=== PATIENT | female | born 1970 | race African-American/Black ===

== ENCOUNTER 2016-05-30 16:54 | Emergency (ER) | payer OTHER ==
--- NOTE | 2016-05-30 20:25 | ED ---
Psych HPI - General Chief Complaint: Psychiatric Symptoms Stated Complaint: Mental Health Time Seen by Provider: 05/30/16 17:10 Source: patient, RN notes reviewed Mode of arrival: ambulatory - History of Present Illness Initial Comments: This patient is a 46-year-old woman who presents to be evaluated after she has had a number of recent stressors in her life. The patient states that she is having significant anxiety and also depressed mood. She states that she needs to get some help soon were she is afraid she is going get much worse. She states that she has history of previous substance abuse and is afraid that she' ll return to that if things don't improve. The patient is currently denying suicidal ideation or homicidal ideation. She is not having hallucinations. MD Complaint: feels depressed Associated Psychiatric Symptoms: depression History of same: No Quality: intermittent Improves With: none Context: significant life stressor Associated Symptoms: denies other symptoms - Related Data Home Medications Medication Instructions Recorded Confirmed Mirtazapine [Remeron] 30 mg PO HS 02/01/14 05/30/16 diphenhydrAMINE HCL [Benadryl] 25 mg PO HS PRN 03/23/14 05/30/16 Ibuprofen [Motrin] 800 mg PO Q8HR PRN 05/30/16 05/30/16 Ranitidine HCl [Zantac] 150 mg PO BID PRN 05/30/16 05/30/16 amLODIPine BESYLATE [Norvasc] 5 mg PO DAILY 05/30/16 05/30/16 metroNIDAZOLE [Flagyl] 500 mg PO BID 05/30/16 05/30/16 traZODone HCL 100 mg PO HS 05/30/16 05/30/16 Allergies Allergy/AdvReac Type Severity Reaction Status Date / Time No Known Allergies Allergy Verified 05/30/16 17:36 Review of Systems ROS Statement: Those systems with pertinent positive or pertinent negative responses have been documented in the HPI. ROS Other: All systems not noted in ROS Statement are negative. Respiratory: Denies: cough, dyspnea Cardiovascular: Denies: chest pain, palpitations, syncope Gastrointestinal: Denies: abdominal pain, vomiting, diarrhea Neurological: Denies: headache, weakness, numbness Psychiatric: Reports: anxiety, depression. Denies: auditory hallucinations, visual hallucinations, homicidal thoughts, suicidal thoughts Past Medical History Past Medical History: Hypertension History of Any Multi-Drug Resistant Organisms: None Reported Past Surgical History: No Surgical Hx Reported Past Psychological History: Anxiety, Depression Smoking Status: Current every day smoker Past Alcohol Use History: Occasional Past Drug Use History: Marijuana General Exam Limitations: no limitations General appearance: alert, in no apparent distress, anxious Head exam: Present: atraumatic, normocephalic Eye exam: Present: normal appearance Respiratory exam: Present: normal lung sounds bilaterally. Absent: respiratory distress, wheezes, rales, rhonchi, stridor Cardiovascular Exam: Present: regular rate, normal rhythm, normal heart sounds. Absent: systolic murmur, diastolic murmur, rubs, gallop GI/Abdominal exam: Present: soft. Absent: distended, tenderness, guarding, rebound Extremities exam: Present: normal inspection, normal capillary refill. Absent: pedal edema, calf tenderness Back exam: Present: normal inspection. Absent: CVA tenderness (R), CVA tenderness (L) Neurological exam: Present: alert, oriented X3, normal gait Psychiatric exam: Present: normal affect, depressed, anxious. Absent: manic, homicidal ideation, suicidal ideation Skin exam: Present: warm, dry, intact, normal color. Absent: rash Course Vital Signs 05/30/16 17:10 Temperature 98.1 F Pulse Rate 72 Respiratory 18 Rate Blood Pressure 222/107 O2 Sat by Pulse 99 Oximetry Disposition Clinical Impression: Adjustment reaction Disposition: HOME SELF-CARE Condition: Fair Instructions: Mood Disorders (ED) Referrals: Meena Obrien MD [Primary Care Provider] - 1-2 days
[2016-05-30 20:47] VITALS: BP 170/81; PULSE 53; RESP 20; TEMP 99.1
== END 2016-05-30 20:46 | disposition home or self-care (01) ==
LOC: EC 16:54
DX: F43.20 Adjustment disorder, unspecified (principal); F32.9 Major depressive disorder, single episode, unspecified; F41.9 Anxiety disorder, unspecified; I10 Essential (primary) hypertension; F17.200 Nicotine dependence, unspecified, uncomplicated; Z79.899 Other long term (current) drug therapy
CPT/HCPCS: 82075; 99283

== ENCOUNTER → 2016-11-20 | Day surgery (SDC) | payer OTHER ==
[2016-10-23 10:15] VITALS: BMI 36.4
[~2016-11-20] MED LIST: DEXAMETHASONE SOD PHOSPHATE 10 MG/ML 1 ML VIAL IV ONE; HEPARIN SODIUM,PORCINE 5,000 UNIT/ML 1 ML VIAL SQ ONE; HYDROmorphone 1 MG/ML 1 ML SYRINGE IVP PRN; LACTATED RINGERS 1,000 ML IV SCH; MIDAZOLAM 2 MG/2 ML VIAL IV PRN; ONDANSETRON 4 MG/2 ML VIAL IVP ONE; SCOPOLAMINE 1.5MG/72HR PATCH TRANSDERM ONE; ceFAZolin 2 GM in SODIUM CHLORIDE 0.9% 100 ML IVPB ONE
== END | disposition home or self-care (01) ==
LOC: OR 06:05
PROVIDERS: ATTEND Surgery
DX: N63 Unspecified lump in breast (principal); Z53.9 Procedure and treatment not carried out, unspecified reason

== ENCOUNTER 2017-01-01 07:30 | Day surgery (SDC) | payer OTHER ==
[2016-12-31 13:20] VITALS: BMI 36.2
[~2017-01-01 07:30] MED LIST changes: -MIDAZOLAM 2 MG/2 ML VIAL IV PRN; -ONDANSETRON 4 MG/2 ML VIAL IVP ONE; -SCOPOLAMINE 1.5MG/72HR PATCH TRANSDERM ONE
[2017-01-01] MEDS ORDERED: LIDOCAINE 1% 20 ML VIAL (10MG/ML) FOR IV START INTRADERMA ONE (08:00)
[2017-01-01] MEDS ORDERED: ALPRAZolam 0.5 MG TAB PO STA (08:00)
[2017-01-01 08:56] VITALS: RESP 16
[2017-01-01] MEDS ORDERED: LIDOCAINE 1% INJ 10MG/ML (20 ML MDV) SQ ONE ×3 (09:50→11:05)
[2017-01-01] MEDS: ONDANSETRON 4 MG/2 ML VIAL IVP ONE ×2 (12:06→13:32)
[2017-01-01] MEDS ORDERED: LIDOCAINE 1% INJ 10MG/ML (20 ML MDV) ONE (12:12)
[2017-01-01] MEDS ORDERED: MIDAZOLAM 2 MG/2 ML VIAL ONE (12:12)
[2017-01-01] MEDS ORDERED: SUCCINYLCHOLINE CHLORIDE 100 MG/5 ML SYR IV ONE (12:12)
[2017-01-01] MEDS ORDERED: SUCCINYLCHOLINE CHLORIDE 100 MG/5 ML SYR ONE (12:12)
[2017-01-01] MEDS ORDERED: PROPOFOL 10 MG/ML 20 ML VIAL IV ONE (12:12)
[2017-01-01] MEDS ORDERED: LIDOCAINE 2%-EPI 1:100,000 20 ML VIAL SQ ONE ×2 (13:03)
[2017-01-01 13:30] VITALS: TEMP 97.4
--- NOTE | 2017-01-01 13:44 | USB ---
EXAMINATION TYPE: US breast surgical specimen RT DATE OF EXAM: 01/01/2017 COMPARISON: NONE CLINICAL HISTORY: R92.8, ABN MAMM. Ultrasound imaging is performed over the specimen. The wire is evident. The lesion however is likely decompressed is not clearly identified. Rounded hypoechoic area may be present possibly the lesion lo calized area. Correlate with the pathology report. IMPRESSION: 1. Wire is within the specimen on the ultrasound imaging. The localized ultrasound abnormality may be present but is difficult to identify on this exam
--- NOTE | 2017-01-01 13:55 | USB ---
EXAMINATION TYPE: US breast localization RT DATE OF EXAM: 01/01/2017 COMPARISON: NONE CLINICAL HISTORY: R92.8, ABN MAMM. Technique: Procedure was explained to the patient. Risks and complications were discussed. All questi ons are answered. Verbal consent was obtained. A timeout was performed. The lesion within the right breast appears to be reidentified. A second ultrasound abnormality is not identified. This area was localized from a lateral approach. Skin was cleansed and draped in the usu al manner. The area was anesthetized with 1% lidocaine. Needle was placed in the lesion. The wire is placed through the needle and the needle was withdrawn. Patient was sent to mammography for wire loca lization confirmation. Following the mammographic imaging it was determined that the previous biopsy clip was not adjacent t o the lesion localized. Mammographic localization wire was then placed. Best attempt for wire placeme nt near the ultrasound approach was unsuccessful by mammography. Patient was therefore brought back t o ultrasound from the mammographic localization utilizing a different approach closer to the mammogra phic approach to provide a single access point for the surgeon at the surgeon's request. Patient was reanesthetized from 1% percent lidocaine. Needle followed by the wire was placed through the lesion. Patient was returned to mammography for wire positioning confirmation which appears successful. The initial wire and the subsequent ultrasound placed where crossed as expected at the tips at the area o f localization. Impressions: 1. Successful ultrasound-guided localization of a right breast ultrasound abnormality. Recommendations: 1. Recommendations are pending pathology results.
--- NOTE | 2017-01-01 13:56 | P.OP ---
Date of Procedure: 01/01/17 Preoperative Diagnosis: Right breast abnormal mammogram Obesity BMI 36.2 Active marijuana use Postoperative Diagnosis: Procedure(s) Performed: Right breast wire localization breast biopsy Implants: NA Anesthesia: FRANSICOA Surgeon: Jessica Lugo Pathology: other Condition: stable Disposition: PACU Indications for Procedure: 46 yrs old female presents with abnormal findings on right breast at 10 o clock. S/P core bx- discordant findings between pathology and radiology. Additional lesion identified on right breast ultrasound adjacent to the clip. Hence, two separate areas were localized using 3 wires. Films reviewed and discussed with radiologist Dr. Acosta Operative Findings: Right breast wire localization biopsy using three wires - one abnormality identified on US and other lesion had a clip from prior core bx Description of Procedure: The mammogram films from wire localization biopsy were reviewed. The patient was brought to the operating room and placed in supine position with both arms out. IV sedation was given as per anesthesia team. The excess wire was cut and right breast was prepped using ChloraPrep. Sterile drapes were applied. A timeout was performed to verify correct patient, correct procedure and correct side. Patient was confirmed to receive perioperative IV antibiotics, heparin 5000 units subcutaneous injection for DVT prophylaxis and bilateral SCDs. A 3 cm horizontal skin incision was made along natural skin crease overlying the two wires superiorly. Superior and inferior subcutaneous flaps were raised in the direction of wire. A 3 cm circumferential breast tissue was removed around the wire and the tip of the wire was included in the specimen. Also encountered was the tip of third wire localization biopsy . It was sent off as a specimen for pathology. The resulting defect was irrigated with normal saline and checked for hemostasis. The defect measured 3 x 3 x 5 cm. This was closed in 3 layers using interrupted sutures of 3-0 Vicryl followed by running subcuticular stitches of 4-0 Monocryl. Dermabond skin glue was applied. The sponge, instrument and needle count were correct -2. Phone formation received during surgery that the area of concern along with the clip and wire was included in the specimen. Patient tolerated the procedure well and was taken to post anesthesia care unit in stable condition.
--- NOTE | 2017-01-01 14:31 | MM ---
Reason for exam: additional evaluation requested from abnormal screening. MG Diagnostic Mammo RT Wo CAD CC and LM view(s) were taken of the right breast. ASSESSMENT: Post procedure mammogram for marker placement RECOMMENDATION: Ultrasound of the right breast in 6 months. PENDING PATHOLOGY RESULTS.
--- NOTE | 2017-01-01 14:31 | MM ---
Reason for exam: additional evaluation requested from abnormal screening. MG Diagnostic Mammo RT Wo CAD CC and ML view(s) were taken of the right breast. ASSESSMENT: Post procedure mammogram for marker placement RECOMMENDATION: Ultrasound of the right breast in 6 months. PENDING PATHOLOGY RESULTS.
[2017-01-01] MEDS ORDERED: ACETAMINOPHEN TAB 325 MG TAB PO ONE (14:41)
[2017-01-01] MEDS ORDERED: IBUPROFEN 200 MG TAB PO ONE (14:42)
[2017-01-01 15:01] VITALS: BP 132/79; PULSE 66
--- NOTE | 2017-01-01 15:14 | MM ---
EXAMINATION TYPE: MG pre op needle loc RT DATE OF EXAM: 01/01/2017 COMPARISON: 01/01/2017 post ultrasound-guided wire localization CLINICAL HISTORY: Abnormal ultrasound TECHNIQUE: Needle localization with wire placement and surgical excision of area of concern in the ri ght breast. FINDINGS: The procedure of needle localization was explained to the patient. All questions were answe red. Verbal informed consent was obtained. The shortest pathway for procedure was chosen. In consultation with the surgeon, the surgeon preferre d a lateral approach to correspond to the ultrasound approach. Several attempts for position or perfo rmed and the wire was placed utilizing a lateral approach with the wire adjacent to the surgical clip . Following confirmation of wire positioning following mammographic localization of the decision was ma ravin to return the patient to ultrasound to place a second wire to the same original ultrasound-guided targeted select 2 lateral wires could have a single approach for the patient. Please also see ultraso und wire localization same date. Following completion of the second ultrasound-guided wire localization mammographic images were obtai manoj for final positioning. The wires and the images were carefully labeled. Phone conversation was pe rformed with surgeon to clarify the procedures performed. Patient was transferred to presurgical hold ing. IMPRESSION: 1. Successful wire localization surgical clip right breast
--- NOTE | 2017-01-01 15:31 | MM ---
EXAMINATION TYPE: MG surgical specimen RT DATE OF EXAM: 01/01/2017 COMPARISON: NONE CLINICAL HISTORY: Abnormal ultrasound TECHNIQUE: Single view specimen FINDINGS: Single view specimen was obtained. Wire adjacent to the localized core marker is within the positioning. The second ultrasound-guided wire localization wire appears in appropriate position wit hin the specimen. This abnormality was not visualized on mammogram and cannot be confirmed. Ultrasoun d of the specimen was also performed suggesting the lesion was likely present. In specimen. First lo calization ultrasound wire is absent. IMPRESSION: 1. Mammographic specimen demonstrating 2 wires, the mammogram for localization and the second ultraso und localization wire.
== END 2017-01-01 15:23 | disposition home or self-care (01) ==
LOC: OR 07:30
PROVIDERS: ATTEND Surgery
DX: R92.8 Other abnormal and inconclusive findings on diagnostic imaging of breast (principal); I10 Essential (primary) hypertension; Z68.36 Body mass index [BMI] 36.0-36.9, adult; E66.01 Morbid (severe) obesity due to excess calories; F17.200 Nicotine dependence, unspecified, uncomplicated; Z79.1 Long term (current) use of non-steroidal anti-inflammatories (NSAID); Z79.899 Other long term (current) drug therapy
CPT/HCPCS: 81025; 76098; 19281; 76999; 19285; 19301; G0206; J2250; J1644; J1100; J0690; J2405; J2001; J1170; J0330; J2704